=== PATIENT | female | born 1975 | race Hispanic/Latino ===

== ENCOUNTER → 2017-07-24 11:21 | Outpatient (CLI) | payer OTHER, SELFPAY ==
[2017-07-24 11:50] LABS: Add Manual Diff / Slide Review NO; Eosinophils Percent Auto 1.2 % (2-4); Hematocrit 36.1 % (36-46); Hemoglobin 12.3 g/dL (12.0-16.0); Lymphocytes Percent Auto 17.5 % (25-40); Mean Corpuscular HGB Conc 34.1 % (30-36); Mean Corpuscular Hemoglobin 26.5 PG (26-34); Mean Corpuscular Volume 77.8 fL (80-100); Monocytes Percent Auto 7.6 % (3-14); Neutrophils Absolute Auto 7700 /uL (3000-5900); Neutrophils Percent Auto 72.7 % (50-75); Platelet Count 226 X10^3/uL (150-400); Red Blood Cell Count 4.64 X10^6/uL (4.0-5.2); Red Cell Distribution Width 15.7 % (11.6-14.8); White Blood Cell Count 10.6 X10^3/uL (4.5-11.0)
[2017-07-24 12:00] LABS: Iron 61 ug/dL (37-170)
[2017-07-24 12:02] LABS: Alanine Aminotransferase 26 IU/L (9-52); Albumin Globulin Ratio 1.2 (1.0-2.8); Alkaline Phosphatase 95 U/L (38-126); Aspartate Aminotransferase 25 IU/L (14-36); BUN Creatinine Ratio 16.3 (6-22); Bilirubin Total 0.5 mg/dL (0.2-1.3); Estimated Glomerular Filt Rate > 60.0 mL/min (>60); Globulin 3.3 g/dL (1.7-4.1); Glucose 90 mg/dL (70-100); HEMOLYSIS < 15 (0-50); Potassium 4.2 mmol/L (3.4-5.1); Sodium 138 mmol/L (137-145); Total Protein 7.3 g/dL (6.3-8.2)
[2017-07-24 12:10] LABS: Total Iron Binding Capacity 397 ug/mL (265-497)
[2017-07-24 12:36] LABS: Ferritin 8.1 ng/mL (6.27-137)
== END ==
PROVIDERS: PCP Family Medicine; Visit Provider Nurse Practitioner Gerontology
DX: D64.9 Anemia, unspecified (principal)
CPT/HCPCS: 80053; 82728; 83540; 83550; 85025

== ENCOUNTER → 2017-10-29 08:48 | Outpatient (CLI) | payer OTHER, SELFPAY ==
--- NOTE | 2017-10-29 | DI.MRI.S_ITS ---
PROCEDURE: MR ANKLE RT WO CON INDICATIONS: RIGHT ANKLE SPRAIN TECHNIQUE: Noncontrast sagittal T1 spin echo and T2 fast spin echo with fat saturation, axial proton density fast spin echo and T2 fast spin echo with fat saturation, coronal T1 spin echo and T2 fast spin echo with fat saturation through the ankle/hindfoot. COMPARISON: None. FINDINGS: Image quality: Diagnostic. Bones and joints: There is no acute fracture or dislocation identified involving the osseous structures of the right midfoot or hindfoot. However, there is moderate marrow edema identified along the medial border of the talus with corresponding marrow edema extending into the middle subtalar joint of the talus. Small foci of marrow edema are present involving the talar dome. There is slight marrow edema evident involving the articular margin of the day and fibula. No osteochondral fragments are evident involving the tibial plafond for the talar dome. There are mild degenerative changes involving the midfoot joints. No suspicious osseous lesions are evident. There are no significant joint effusions. Medial structures: The the deltoid ligament appears to be completely torn. The spring ligament is thickened and edematous, particularly involving the supramedial band of the spring ligament. There is thickening and increased signal identified involving the tibialis posterior tendon near the level of the medial malleolus with a small amount of fluid contained within its corresponding tendon sheath. The flexor hallucis longus and flexor digitorum longus tendons are intact and otherwise unremarkable. The posterior tibial nerve appears to be normal in size and signal through the region of the tarsal tunnel. Subcutaneous edema is identified about the medial aspect of the ankle. Lateral structures: The anterior and posterior distal tibiofibular ligaments are somewhat thickened and heterogeneous but noted to be intact. There is a complete tear of the anterior talofibular ligament. Increased signal and irregularity is noted involving the posterior talofibular ligament. The calcaneofibular ligament is completely torn. There is increased signal centrally and thickening involving the peroneus longus tendon and flattening involving the peroneus brevis tendon along the posterior margin of the lateral malleolus. Edema is identified adjacent to these tendons with a small amount of fluid contained within their corresponding tendon sheaths. No full-thickness tears are identified. There is moderate subcutaneous edema about the lateral aspect of the ankle. Mild increased signal is noted within the region of the sinus tarsi. Anterior structures: The tibialis anterior, extensor hallucis longus, and extensor digitorum longus tendons appear intact. The dorsal talonavicular ligament appears intact. Posterior and plantar structures: Achilles tendon is intact. There is thickening identified involving the medial band of the plantar fascia at its calcaneal attachment, measuring up to approximately 7 mm. No significant tearing is identified. IMPRESSION: 1. Full-thickness tear of the deltoid ligament. There is a corresponding prominent sprain of the spring ligament. 2. Full-thickness anterior talofibular ligament and calcaneofibular ligament tears. Sprain of the posterior talofibular ligament is present. There may be scarring of the syndesmotic ligaments without a full-thickness tear appreciated. 3. Mild peroneus brevis and peroneus longus tendinopathy. 4. Moderate tibialis posterior tendinopathy. 5. Thickening of the plantar fascia suggestive of plantar fasciitis. Please correlate clinically. 6. Marrow edema involving the medial border of the talus may be degenerative. Bone contusion may have this appearance. The possibility of a tiny nondisplaced fracture involving the middle subtalar joint is difficult to exclude. The need for prior catheterization utilizing noncontrast CT of the ankle may be determined clinically. Dictated by: Phoenix Williamson M.D. on 10/29/2017 at 15:01 Approved by: Phoenix Williamson M.D. on 10/29/2017 at 15:11
== END ==
PROVIDERS: PCP Family Medicine; Visit Provider Family Medicine
DX: S93.421A Sprain of deltoid ligament of right ankle, initial encounter (principal); S93.411A Sprain of calcaneofibular ligament of right ankle, initial encounter; S93.491A Sprain of other ligament of right ankle, initial encounter
CPT/HCPCS: 73721

== ENCOUNTER → 2021-04-20 12:46 | Outpatient (CLI) | payer OTHER, SELFPAY ==
--- NOTE | 2021-04-20 | DI.CT.S_ITS ---
PROCEDURE: CT SINUS SCREEN WO CON INDICATIONS: Chronic pansinusitis TECHNIQUE: Noncontrast 3.0 mm axial images acquired from the frontal sinuses to the mid-sella, with coronal and sagittal reformats. For radiation dose reduction, the following was used: automated exposure control, adjustment of mA and/or kV according to patient size. COMPARISON: None. FINDINGS: Image quality: Excellent. Sinuses: No fluid levels, areas of mucosal thickening, mucous retention cysts or polyps are identified. Ostiomeatal Complexes: Ostiomeatal complexes are patent. No Lydia cells. Miscellaneous: Visualized intra-orbital contents are normal. No portillo bullosa or paradoxical turbinate curvature. Slight rightward nasal septal deviation. IMPRESSION: No visualized sinusitis. Ostiomeatal complexes are patent. Dictated by: Candelaria Hernandez M.D. on 04/20/2021 at 13:09 Approved by: Candelaria Hernandez M.D. on 04/20/2021 at 13:10
== END ==
PROVIDERS: PCP Family Medicine; Referring Provider Otolaryngology; Visit Provider Otolaryngology
DX: J32.4 Chronic pansinusitis (principal); J34.89 Other specified disorders of nose and nasal sinuses; R51.9 Headache, unspecified
CPT/HCPCS: 70486